=== PATIENT | male | born 1995 | race Caucasian/White ===

== ENCOUNTER 2021-03-11 04:55 | Emergency (ER) | payer OTHER ==
[~2021-03-11] VITALS: Ht 167.6 cm; Wt 61.0 kg
[2021-03-11] MEDS ORDERED: LIDOCAINE W/EPINEPHRINE 1% 20ML VIAL As Ordered ONE (07:22)
[2021-03-11] MEDS ORDERED: LIDOCAINE 2% W/EPINEPHRINE 20ML VIAL **PRES FREE INJ ONE (07:25)
[2021-03-11 07:40] VITALS: BP 120/84
[2021-03-11] MEDS ORDERED: LIDOCAINE W/EPINEPHRINE 1% 20ML VIAL SC ONE (07:55)
== END 2021-03-11 08:15 | disposition home or self-care (01) ==
LOC: M ED 04:55
DX: S01.81XA Laceration without foreign body of other part of head, initial encounter (principal); X58.XXXA Exposure to other specified factors, initial encounter; Y92.099 Unspecified place in other non-institutional residence as the place of occurrence of the external cause; Y93.9 Activity, unspecified; Y99.9 Unspecified external cause status; Z88.7 Allergy status to serum and vaccine; Z91.040 Latex allergy status

== ENCOUNTER 2021-03-18 03:59 | Emergency (ER) | payer OTHER ==
[~2021-03-18] VITALS: Ht 167.6 cm; Wt 65.0 kg
[2021-03-18] MEDS ORDERED: DERMABOND TOPICAL SKIN ADHESIVE TOP ONE (06:10)
[2021-03-18 10:05] VITALS: BP 126/64
== END 2021-03-18 10:06 | disposition home or self-care (01) ==
LOC: M ED 03:59
DX: S01.81XA Laceration without foreign body of other part of head, initial encounter (principal); X58.XXXA Exposure to other specified factors, initial encounter; Y92.89 Other specified places as the place of occurrence of the external cause; Y93.89 Activity, other specified; Y99.9 Unspecified external cause status; F17.200 Nicotine dependence, unspecified, uncomplicated; Z88.7 Allergy status to serum and vaccine; Z91.040 Latex allergy status